=== PATIENT | female | born 2000 | race African-American/Black ===

== ENCOUNTER 2020-07-15 10:25 | Emergency (ER) | payer MEDICAID ==
[~2020-07-15] VITALS: Ht 162.6 cm; Wt 58.4 kg
[2020-07-15 10:44] VITALS: BP 111/75
[2020-07-15] MEDS ORDERED: DOXY100T28 PO (11:20)
[2020-07-15] MEDS ORDERED: CEFTRIAXONE SODIUM 250 MG/VIAL IM ONE (11:30)
[2020-07-15] MEDS ORDERED: DOXYCYCLINE HYCLATE 100MG CAPSULE PO ONE (11:30)
[2020-07-15 11:45] LABS: CLARITY URINE CLEAR (CLEAR); COLOR URINE YELLOW (YELLOW); KETONES URINE TRACE (NEGATIVE); LEUKOCYTE ESTERASE URINE NEGATIVE (NEGATIVE); NITRITE URINE NEGATIVE (NEGATIVE); OCCULT BLOOD URINE NEGATIVE (NEGATIVE); PH URINE 8.5 (4.5-8.0); PROTEIN URINE NEGATIVE (NEGATIVE); SPECIFIC GRAVITY URINE 1.033 (1.005-1.030)
[2020-07-15] MEDS ORDERED: IBUP-2028 PO (12:34)
== END 2020-07-15 13:11 | disposition home or self-care (01) ==
LOC: ER 10:25
DX: R10.2 Pelvic and perineal pain (principal); Z11.3 Encounter for screening for infections with a predominantly sexual mode of transmission; Z91.018 Allergy to other foods; Z91.013 Allergy to seafood; Z98.51 Tubal ligation status; Z98.890 Other specified postprocedural states
CPT/HCPCS: 76830; 76856; 81003; 81025; 87210; 96372; 99284; J0696